=== PATIENT | male | born 1955 | race Caucasian/White ===

== ENCOUNTER 2016-05-31 22:06 | Emergency (ER) | payer OTHER ==
--- NOTE | ~2016-05-31 | CT71 ---
[facility] A Service of [facility] & [facility] RADIOLOGY TEXT RESULTS PATIENT: MARGARITA CHUNG LOCATION: [facility] : 59 UNIT #: [id number] AGE: [address]: Del Vargas MD SEX: M ORDER DR: [id number] [facility] [address] [place], [place] [address] [id number] MR#: [id number] #: [id number] NAME: MARGARITA CHUNG. : 1955 SEX: M STUDY DATE/TIME: 05/31/2016 22:31 UNIT: [facility] ROOM: STUDY DESCRIPTION: CT Head Wo Contrast Attending Physician: Del Vargas M.D. Ordering Physician: Del Vargas M.D. Primary Care Physician: Berkley Shelton M.D. MEDICAL IMAGING REPORT This report is preliminary unless electronic signature is present EXAM Head CT without HISTORY Possible spider bite to head. Headache, swelling left posterior head for a few days. Hit top of head on cabinet. History of hypertension. This CT exam was performed with one or more of the following radiation dose reduction techniques: automatic exposure control, adjustment of mA and/or kV according to patient size, and iterative reconstruction. COMMENT Routine noncontrast head CT is reviewed. There is no previous. There is no displaced calvarial fracture. There mastoid air cells are clear. The ethmoid air cells contain mucosal disease. No sinus air fluid level. There is some soft tissue abnormality in the left occipital scalp area. Please correlate with physical exam findings. There may be a tiny subcutaneous abscess, but the CT is not sensitive for this diagnosis. There is no evidence for acute intracranial hemorrhage or extraaxial fluid collection. The ventricles are normal in size and configuration. [place]-white junction is well maintained. There is a low attenuation structure associated with the junction of the right transverse and sigmoid sinuses in the posterior fossa about 1.2 cm in dimension. I suspect this is an arachnoid granulation protruding into the dural venous sinus. I would recommend that it be more completely characterized, however, with MRI brain with and without contrast and MR venogram to confirm since the patient does have head complaints. This would be unrelated to the acute complaint. There appears to be chronic bony remodeling. Basilar cisterns are patent. There are vascular calcifications at the base of the brain. There is no acute cortical infarct suspected. There is intracranial mass effect or midline shift. Probably a small chronic insult to the left STS. 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 IMPRESSION 1. There is some soft tissue swelling seen posteriorly in the left occipital scalp consistent with history provided. There may be a tiny subcutaneous abscess but please correlate with the physical exam findings, this is not a CT diagnosis. 2. There is no evidence for acute intracranial injury. There is no calvarial fracture or osseous abnormality associated with the area of soft tissue swelling. 3. There is what is probably a benign large arachnoid granulation protruding into the right sided dural venous sinuses at the junction of the transverse and sigmoid sinus. I would suggest that this be more completely characterized with MRI brain, MR venogram on a nonemergent basis. This should be unrelated to the current presentation and it appears to be a longstanding process given the associated bony remodeling. 4. Probably some mild small vessel disease with I suspect tiny lacunes at the left caudate head. No acute hemorrhage. Dictated by... Elsi Brady M.D. THIS IS AN ELECTRONICALLY VERIFIED REPORT Elsi Brady M.D. at 06/01/2016 10:25 AM Mia TD: 06/01/2016 06:47 JOB #: [id number] MEDICAL IMAGING REPORT Page 1 of 1 COPY
[~2016-05-31 22:06] MED LIST: ALDACTONE25 MG PO; AMIODARONE HCL400 MG PO; AMIODARONE PO; APAP325 M2 PO; ASPIRIN81 M2 PO; BUMETANIDE1 MG PO; CARVEDILOL12.5 MG PO; CORDARONE200 M1 PO; LISINOPRIL20 MG PO; MAG-OX 400400 MG PO; NO MEDICATIONS; PANTOPRAZOLE SO40 MG PO
== END 2016-05-31 23:30 | disposition home or self-care (01) ==
LOC: CED 22:06
DX: L03.811 Cellulitis of head [any part, except face] (principal); R51 Headache; F17.210 Nicotine dependence, cigarettes, uncomplicated; Z79.899 Other long term (current) drug therapy
CPT/HCPCS: 70450; 96372; 99284; J1885